=== PATIENT | female | born 1945 | race Caucasian/White ===

== ENCOUNTER → 2016-07-24 | Outpatient (CLI) | payer OTHER ==
[~2016-07-24] MED LIST: ALUMSUS2 PO; ASPEC81 PO; HYDR25TA5 PO; PRT/40 PO; TNR25 PO; ZYR10 PO
[2016-07-24 17:30] LABS: BLOOD UREA NITROGEN 17 mg/dl (7-18); CALCIUM 9.7 mg/dl (8.5-10.1); CARBON DIOXIDE 30 mmol/L (21-32); CHLORIDE 104 mmol/L (98-107); GLUCOSE 116 mg/dl (70-99); PHOSPHORUS 3.7 mg/dl (2.5-4.9); POTASSIUM 4.2 mmol/L (3.5-5.1); SODIUM 142 mmol/L (136-145)
== END | disposition home or self-care (01) ==
LOC: C.LABBFT 17:59
PROVIDERS: ATTEND Family Medicine
DX: N18.3 Chronic kidney disease, stage 3 (moderate) (principal)

== ENCOUNTER → 2017-09-19 | Outpatient (CLI) | payer OTHER ==
[~2017-09-19] MED LIST changes: -ASPEC81 PO; +ASPI-320 PO; +PANT40TA2 PO; -PRT/40 PO
--- NOTE | 2017-09-22 07:46 | MAMMOGRAPHY REPORT ---
BILATERAL DIGITAL SCREENING MAMMOGRAM TOMOSYNTHESIS WITH CAD: 09/19/2017 CLINICAL HISTORY: Routine screening. TECHNIQUE: Breast tomosynthesis in addition to standard 2D mammography was performed. Current study was also evaluated with a Computer Aided Detection (CAD) system. COMPARISON: Comparison is made to exams dated: 10/19/2014 mammogram, 01/21/2012 mammogram, 01/17/2011 [facility], and 12/08/2008. BREAST COMPOSITION: The tissue of both breasts is almost entirely fatty. FINDINGS: No suspicious masses, calcifications, or areas of architectural distortion are noted in ei ther breast. There has been no significant interval change compared to prior exams. IMPRESSION: ACR BI-RADS CATEGORY 1: NEGATIVE There is no mammographic evidence of malignancy. A 1 year screening mammogram is recommended. The pa tient will receive written notification of the results. Approximately 10% of breast cancers are not detected with mammography. A negative mammographic report should not delay biopsy if a clinically suggestive mass is present. Chica Estrada M.D. ah/:09/19/2017 15:35:49 Plumber'S Helper: Baltazar CHAVEZ(Cheryl)(M), [facility] letter sent: Normal 1/2 BI-RADS Code: ACR BI-RADS Category 1: Negative
== END | disposition home or self-care (01) ==
LOC: C.MAMM 13:14
PROVIDERS: ATTEND Family Medicine
DX: Z12.31 Encounter for screening mammogram for malignant neoplasm of breast (principal)

== ENCOUNTER 2019-06-24 08:38 | Inpatient (IN) ==
--- NOTE | 2019-06-01 13:59 | PAT Medication Instructions ---
Medication Instructions Date of Service June 01, 2019 Home Medications Medications No Known Home Medications 05/21/19 [History Confirmed 05/21/19] Take morning of surgery With a small sip of water, OTHERWISE NOTHING TO EAT OR DRINK AFTER MIDNIGHT: Insulin Dependent Diabetic Patients * Test your blood sugar the morning of surgery * If Blood Sugar is GREATER THAN 150, take HALF of your regular dose of: * If Blood Sugar is LESS THAN 150, DO NOT TAKE ANY: Other Notes If you have any questions please call us at [phone] or [phone] or [phone] or [phone]
--- NOTE | 2019-06-01 14:14 | Anesthesiology Consultation ---
Date of Service June 01, 2019 Assessment & Plan (1) Encounter for pre-operative examination: Chart Review Chart Review: Acceptable Risk for Surgery (pending surgeon-ordered PCP clearance scheduled 06/09 (Dr. Mc)) and Patient seen in Pre Admission Testing Teaching & Discussion Pre-Anesthesia Teaching/Discussion Notes: Instructed NPO after midnight before surgery,except medications with 15 cc of water. Medication instructions provide d according to the PAT guidelines. History Surgery Operation Date: 06/24/19 09:25 Proposed Procedures p Right Total Hip Arthroplasty - Cain Rg MD Height/Weight Height: 5 ft 6 in Weight: 80.9 kg Allergies Allergy/AdvReac Type Severity Reaction Status Date / Time Iodinated Contrast Media Allergy Unknown Hives Verified 05/21/19 09:06 Medications Home Medications Medication Instructions Recorded Confirmed Last Taken No Known Home Medications 05/21/19 05/21/19 Unknown Past Medical History Medical History Chronic sinus complaints Diverticulosis History of hypertension "borderline"- controlled off meds Hx of gastroesophageal reflux (GERD) occasional IBS (irritable bowel syndrome) Osteoarthritis Palpitations previously on atenolol Stage 3 chronic kidney disease Exercise / Class Metabolic Activity III < 4 Walking/Shop/Light housework Past Surgical History Surgical History Hx of cervical spine surgery laminectomy Hx of colonoscopy Hx of dilation and curettage Past Anesthesia History No Family Hx of Anesthesia Complications and Other Patient: "Slow to wake" History of PONV History of PONV and Hx of Motion Sickness (occasional) Social History Smoking Status: Never smoker Do You Dip or Chew Tobacco: No Hx Alcohol Use: No Hx Substance Use: No Review of Systems URI symptoms improving (+ non-productive cough). Occasional palpitations (unchanged). Occasional reflux. Patient denies chest pain, shortness of breath, reflux, cough, wheezing. Physical Exam Vital Signs VITALS BP 148/82 P 93 TEMP 98.4 SP02 96%RA RESP 18 PHYSICAL Mildly decreased cerivical extension Full TMJ range of motion. TMD 3 finger breaths Mallampati Score 2 Dentition: intact Lungs: clear throughout to auscultation Cardiac: regular rate and rhythm, no murmurs noted Spine: normal Carotid arteries: negative bruit Extremities: no edema Testing Laboratory Results 06/01/19 14:38 06/01/19 14:38 PT 9.8 Seconds (9.0-12.0) 06/01/19 14:38 INR 1.0 (0.9-1.1) 06/01/19 14:38 APTT 28.0 Seconds (21.0-31.0) 06/01/19 14:38 Hemoglobin A1c 6.2 % (4.5-5.6) H 06/01/19 14:38 Urine Color Yellow 06/01/19 14:38 Urine Appearance Clear (Clear) 06/01/19 14:38 Urine pH 5.5 (4.5-7.5) 06/01/19 14:38 Ur Specific [place] 1.006 (1.000-1.030) 06/01/19 14:38 Urine Protein Negative (Negative) 06/01/19 14:38 Urine Glucose (UA) Negative (Negative) 06/01/19 14:38 Urine Ketones Negative (Negative) 06/01/19 14:38 Urine Nitrite Negative (Negative) 06/01/19 14:38 Ur Leukocyte Esterase Negative (Negative) 06/01/19 14:38 Blood Type O Negative 06/01/19 14:38 Antibody Screen NEGATIVE 06/01/19 14:38 Electrocardiogram Date: 06/01/19 NSR at 74bpm. iRBBB. NS STA. Stress Test Date: 01/13/14 Type: exercise Normal exercise stress ECHO. No ECHO evidence of myocardial ischemia. Mild equivocal EKG changes. 5.3 METS. LVEF 55-60%. 106% MPHR.
[2019-06-01 15:56] LABS: Appearance Urine Clear (Clear); Bilirubin Urine Negative (Negative); Blood Urine Negative (Negative); Color Urine Yellow; Glucose Urine UA Negative (Negative); Ketones Urine Negative (Negative); Leukocyte Esterase Urine Negative (Negative); Nitrite Urine Negative (Negative); Protein Urine Negative (Negative); Specific Gravity Urine 1.006 (1.000-1.030); Urobilinogen Urine Negative (Negative); pH Urine 5.5 (4.5-7.5)
[2019-06-01 15:57] LABS: Basophils # (auto) 0.06 K/uL (0-0.2); Basophils % (auto) 0.6 %; Eosinophils # (auto) 0.11 K/uL (0-0.5); Eosinophils % (auto) 1.1 %; Hematocrit (blood only) 44.5 % (37-47); Hemoglobin 15.1 g/dL (12.0-16.0); Immature Granulocytes # (auto) 0.04 K/uL (0.00-0.02); Immature Granulocytes % (auto) 0.4 %; Lymphocytes # (auto) 2.27 K/uL (1.2-3.4); Lymphocytes % (auto) 23.1 %; Mean Corpuscular Hemoglobin 30.1 pg (25-34); Mean Corpuscular Hgb Conc 33.9 g/dL (32-36); Mean Corpuscular Volume 88.8 fL (80-100); Mean Platelet Volume 10.3 fL (7.4-10.4); Monocytes # (auto) 0.68 K/uL (0.11-0.59); Monocytes % (auto) 6.9 %; Neutrophils # (auto) 6.68 K/uL (1.4-6.5); Neutrophils % (auto) 67.9 %; Platelet Count 226 K/uL (130-400); RDW Coefficient of Variation 13.5 % (11.5-14.5); RDW Standard Deviation 44.1 fL (36.4-46.3); Red Blood Count 5.01 M/uL (4.2-5.4); White Blood Count 9.84 K/uL (4.8-10.8)
[2019-06-01 16:13] LABS: Prothrombin Time 9.8 Seconds (9.0-12.0)
--- NOTE | 2019-06-01 16:17 | Electrocardiogram Report ---
Test Reason : Blood Pressure : / mmHG Vent. Rate : 074 BPM Atrial Rate : 074 BPM P-R Int : 138 ms QRS Dur : 092 ms QT Int : 398 ms P-R-T Axes : 067 064 065 degrees QTc Int : 441 ms Normal sinus rhythm Incomplete right bundle branch block Nonspecific ST abnormality Abnormal ECG When compared with ECG of 13-JAN-2014 06:31, T wave inversion no longer evident in Anterior leads Confirmed by Varinder Aguayo ([id number]) on 06/01/2019 4:16:43 PM Referred By: Cain Rg Confirmed By:Varinder Aguayo
[2019-06-01 16:23] LABS: Albumin Level 3.9 gm/dl (3.4-5.0); BUN Creatinine Ratio 16.9 (10-20); Calcium 9.8 mg/dl (8.5-10.1); Creatinine Clr Calc Pharmacy 48.3 ml/min; Est GFR (African American) 56.2; Est GFR (Non-African American) 48.5; Potassium 4.4 mmol/L (3.5-5.1)
[2019-06-01 16:32] LABS: Bilirubin,Total 0.3 mg/dl (0.2-1); Globulin 3.8 gm/dl (2.5-4.0); Total Protein 7.7 gm/dl (6.4-8.2)
[2019-06-02 07:26] LABS: Estimated Average Glucose 131 mg/dl; Hemoglobin A1C 6.2 % (4.5-5.6)
--- NOTE | 2019-06-02 14:35 | History & Physical Report ---
Date of Service June 02, 2019 Assessment & Plan (1) Osteoarthritis of right hip: Diagnosis: [Right hip osteoarthritis] Procedure: [Right total hip arthroplasty] Plan: [Patient is scheduled to undergo this procedure with Dr. Cain Rg at the [facility] as an inpatient on June 24, 2019 risks and complications of the procedure such as infection bleeding pain scarring nerve blood vessel damage with wound problems stiffness incomplete relief of symptoms hardware failure hardware loosening wear fracture tendon or ligament injury dislocation leg length inequality blood clots embolism heart attack stroke and were explained to the patient during her visit today by Dr. Rg informed consent to perform the procedure was obtained. Patient had her preanesthesia clearance test at the hospital earlier today and at that time obtains a preoperative EKG CBC with differential complete metabolic panel PT/INR blood type and screen urinalysis urine culture hemoglobin A1c and a nasal culture for MRSA. Patient is scheduled appointment with her primary care provider Dr. Mc next Friday for her preoperative clearance examination. Her two-week postoperative follow-up with myself is on July 07 at 1045. During today's visit I educated patient about total hip precautions, use of antibiotics after total joint replacement, discharge planning, purchase of a hip care, lectures offered by the [facility] in regards to joint replacement surgery. I also advised her about purchasing a hip kit, bringing a walker with her on the day of surgery, and provided her with paperwork to obtain a handicap placard for her vehicle. Advised the patient that I will discharge her with prescriptions for pain relieving agents and that she will be taking enteric- coated aspirin twice daily for 30 days postoperatively for prevention of blood clots. Patient verbalizes understanding of all information during today's visit thanks for the care she is received and states that she has questions or concerns prior to her surgery date she will contact the clinic.] History of Present Illness Chief Complaint: Right hip pain Primary Care Provider: Castro Mc MD History of Present Illness: [74-year-old female presents to the clinic today for preoperative history and physical patient complains of a 3 to 4-year history of persistent right hip pain that is steadily increased. Pain prevents her from walking long distances, makes ascending or descending stairs difficult, and has made it difficult for her to care for her grandchildren. Patient is failed conservative treatment with physical therapy the use of nonsteroidal agents and with steroid injections into the hip.] Past History: [Past medical history: sleep apnea, heart palpitations, migraine headache, gastroesophageal reflux, hiatal hernia, obesity Past surgical history: Stage III chronic kidney disease, cervical laminectomy, D&C] Family History: [Noncontributory] Review of Systems: [Unremarkable except for those things previously stated in the HPI] Known Allergies to Medications: [IVP dye] Medication List Active Medications No Active Medications Found Medications Inactivated in the Last 72 Hours No medications found. Social History: [Completely unremarkable] Vital signs: Height 168 cm Weight 82.2 kg Blood pressure 128/76 Pulse 103 Temperature 36.8 Oxygen saturation 90% Physical Examination: [Skin: Patient skin along peers without skin lesions or discharge. Eyes: pupils are equal reactive light accommodation extraocular motor intact. Throat:Posterior pharynx clear without edema erythema or exudate Cardiovascular exam: Patient has a regular rate and rhythm no murmurs gallops initiated Lungs: Auscultation of lung sounds reveals clear breath sounds throughout no wheezing rales or rhonchi. Abdomen: Obese nondistended nontender with normoactive bowel sounds Extremities: Right hip; walks with limp Positive Trendelenberg's test Tenderness along GT and anterior joint line Tight IT band Positive Xiomara's test ROM - Flexion 120; ER 50; IR 0: Abd 20 (other side 120/50/30/50) Pain on end range [facility] resisted hip flexion test - positive ] Diagnosis: [Right hip osteoarthritis] Procedure: [Right total hip arthroplasty] Plan: [Patient is scheduled to undergo this procedure with Dr. Cain Rg at the [facility] as an inpatient on June 24, 2019 risks and complications of the procedure such as infection bleeding pain scarring nerve blood vessel damage with wound problems stiffness incomplete relief of symptoms hardware failure hardware loosening wear fracture tendon or ligament injury dislocation leg length inequality blood clots embolism heart attack stro ke and were explained to the patient during her visit today by Dr. Rg informed consent to perform the procedure was obtained. Patient had her preanesthesia clearance test at the hospital earlier today and at that time obtains a preoperative EKG CBC with differential complete metabolic panel PT/INR blood type and screen urinalysis urine culture hemoglobin A1c and a nasal culture for MRSA. Patient is scheduled appointment with her primary care provider Dr. Mc next Friday for her preoperative clearance examination. Her two-week postoperative follow-up with myself is on July 07 at 1045. During today's visit I educated patient about total hip precautions, use of antibiotics after total joint replacement, discharge planning, purchase of a hip care, [facility] replacement surgery. I also advised her about purchasing a hip kit, bringing a walker with her on the day of surgery, and provided her with paperwork to obtain a handicap placard for her vehicle. Advised the patient that I will discharge her with prescriptions for pain relieving agents and that she will be taking enteric- coated aspirin twice daily for 30 days postoperatively for prevention of blood clots. Patient verbalizes understanding of all information during today's visit thanks for the care she is received and states that she has questions or co ncerns prior to her surgery date she will contact the clinic.] Allergies Allergy/AdvReac Type Severity Reaction Status Date / Time Iodinated Contrast Media Allergy Unknown Hives Verified 05/21/19 09:06 Home Medications Home Medications Medication Instructions Recorded Confirmed Type No Known Home Medications 05/21/19 05/21/19 History Past Med/Surg History Medical History Chronic sinus complaints Diverticulosis History of hypertension "borderline"- controlled off meds Hx of gastroesophageal reflux (GERD) occasional IBS (irritable bowel syndrome) Osteoarthritis Palpitations previously on atenolol Stage 3 chronic kidney disease Surgical History Hx of cervical spine surgery laminectomy Hx of colonoscopy Hx of dilation and curettage Social History Preferred Language: Irish Communication Ability: Effective Beliefs That Will Affect Care: None Current Living Situation: Alone Other Information That Helps Us Care for You: Yes (WANTS TO GO TO REHAB POST OP) Feels Safe at Home: Yes Safety Concerns: Feels Safe At This Time Smoking Status: Never smoker Do You Dip or Chew Tobacco: No ; Second Hand Exposure: Yes (YEARS AGO) ; Hx Alcohol Use: No Hx Substance Use: No Review of Systems All systems reviewed & are unremarkable except as noted in HPI & below Physical Exam Physical Exam: Physical Examination: [Skin: Patient skin along peers without skin lesions or discharge. Eyes: pupils are equal reactive light accommodation extraocular motor intact. Throat:Posterior pharynx clear without edema erythema or exudate Cardiovascular exam: Patient has a regular rate and rhythm no murmurs gallops initiated Lungs: Auscultation of lung sounds reveals clear breath sounds throughout no wheezing rales or rhonchi. Abdomen: Obese nondistended nontender with normoactive bowel sounds Extremities: Right hip; walks with limp Positive Trendelenberg's test Tenderness along GT and anterior joint line Tight IT band Positive Xiomara's test ROM - Flexion 120; ER 50; IR 0: Abd 20 (other side 120/50/30/50) Pain on end range [place] resisted hip flexion test - positive Results & Data Laboratory Results Lab Results 06/01/19 06/01/19 06/01/19 Range/Units 14:38 14:38 14:38 WBC 9.84 (4.8-10.8) K/uL RBC 5.01 (4.2-5.4) M/uL Hgb 15.1 (12.0-16.0) g/dL Hct 44.5 (37-47) % MCV 88.8 (80-100) fL MCH 30.1 (25-34) pg MCHC 33.9 (32-36) g/dL RDW Std Deviation 44.1 (36.4-46.3) fL RDW Coeff of Aureliano 13.5 (11.5-14.5) % Plt Count 226 (130-400) K/uL MPV 10.3 (7.4-10.4) fL Immature Gran % (Auto) 0.4 % Neut % (Auto) 67.9 % Lymph % (Auto) 23.1 % Mower % (Auto) 6.9 % Eos % (Auto) 1.1 % Baso % (Auto) 0.6 % Immature Gran # (Auto) 0.04 H (0.00-0.02) K/uL Neut # (Auto) 6.68 H (1.4-6.5) K/uL Lymph # (Auto) 2.27 (1.2-3.4) K/uL Mower # (Auto) 0.68 H (0.11-0.59) K/uL Eos # (Auto) 0.11 (0-0.5) K/uL Baso # (Auto) 0.06 (0-0.2) K/uL PT 9.8 (9.0-12.0) Seconds INR 1.0 (0.9-1.1) APTT 28.0 (21.0-31.0) Seconds PTT Ratio 1.0 Sodium (136-145) mmol/L Potassium (3.5-5.1) mmol/L Chloride (98-107) mmol/L Carbon Dioxide (21-32) mmol/L Anion Gap (3-11) BUN (7-18) mg/dl Creatinine (0.6-1.2) mg/dl Est Cr Clr Drug Dosing ml/min Est GFR ( Amer) Est GFR (Non-Af Amer) BUN/Creatinine Ratio (10-20) Glucose (70-99) mg/dl Estimat Average Glucose mg/dl Hemoglobin A1c (4.5-5.6) % Calcium (8.5-10.1) mg/dl Total Bilirubin (0.2-1) mg/dl AST (15-37) U/L ALT (12-78) U/L Alkaline Phosphatase (45-117) U/L Total Protein (6.4-8.2) gm/dl Albumin (3.4-5.0) gm/dl Globulin (2.5-4.0) gm/dl Albumin/Globulin Ratio (0.9-2) Urine Color Urine Appearance (Clear) Urine pH (4.5-7.5) Ur Specific [place] (1.000-1.030) Urine Protein (Negative) Urine Glucose (UA) (Negative) Urine Ketones (Negative) Urine Blood (Negative) Urine Nitrite (Negative) Urine Bilirubin (Negative) Urine Urobilinogen (Negative) Ur Leukocyte Esterase (Negative) Nasal Screen MRSA (PCR) (Negative) Blood Type O Negative Antibody Screen NEGATIVE 06/01/19 06/01/19 06/01/19 Range/Units 14:38 14:38 14:38 WBC (4.8-10.8) K/uL RBC (4.2-5.4) M/uL Hgb (12.0-16.0) g/dL Hct (37-47) % MCV (80-100) fL MCH (25-34) pg MCHC (32-36) g/dL RDW Std Deviation (36.4-46.3) fL RDW Coeff of Aureliano (11.5-14.5) % Plt Count (130-400) K/uL MPV (7.4-10.4) fL Immature Gran % (Auto) % Neut % (Auto) % Lymph % (Auto) % Mower % (Auto) % Eos % (Auto) % Baso % (Auto) % Immature Gran # (Auto) (0.00-0.02) K/uL Neut # (Auto) (1.4-6.5) K/uL Lymph # (Auto) (1.2-3.4) K/uL Mower # (Auto) (0.11-0.59) K/uL Eos # (Auto) (0-0.5) K/uL Baso # (Auto) (0-0.2) K/uL PT (9.0-12.0) Seconds INR (0.9-1.1) APTT (21.0-31.0) Seconds PTT Ratio Sodium 138 (136-145) mmol/L Potassium 4.4 (3.5-5.1) mmol/L Chloride 103 (98-107) mmol/L Carbon Dioxide 29 (21-32) mmol/L Anion Gap 5.0 (3-11) BUN 19 H (7-18) mg/dl Creatinine 1.13 (0.6-1.2) mg/dl Est Cr Clr Drug Dosing 48.3 ml/min Est GFR ( Amer) 56.2 Est GFR (Non-Af Amer) 48.5 BUN/Creatinine Ratio 16.9 (10-20) Glucose 139 H (70-99) mg/dl Estimat Average Glucose 131 mg/dl Hemoglobin A1c 6.2 H (4.5-5.6) % Calcium 9.8 (8.5-10.1) mg/dl Total Bilirubin 0.3 (0.2-1) mg/dl AST 20 (15-37) U/L ALT 28 (12-78) U/L Alkaline Phosphatase 85 (45-117) U/L Total Protein 7.7 (6.4-8.2) gm/dl Albumin 3.9 (3.4-5.0) gm/dl Globulin 3.8 (2.5-4.0) gm/dl Albumin/Globulin Ratio 1.0 (0.9-2) Urine Color Yellow Urine Appearance Clear (Clear) Urine pH 5.5 (4.5-7.5) Ur Specific [place] 1.006 (1.000-1.030) Urine Protein Negative (Negative) Urine Glucose (UA) Negative (Negative) Urine Ketones Negative (Negative) Urine Blood Negative (Negative) Urine Nitrite Negative (Negative) Urine Bilirubin Negative (Negative) Urine Urobilinogen Negative (Negative) Ur Leukocyte Esterase Negative (Negative) Nasal Screen MRSA (PCR) (Negative) Blood Type Antibody Screen 06/01/19 Range/Units 14:38 WBC (4.8-10.8) K/uL RBC (4.2-5.4) M/uL Hgb (12.0-16.0) g/dL Hct (37-47) % MCV (80-100) fL MCH (25-34) pg MCHC (32-36) g/dL RDW Std Deviation (36.4-46.3) fL RDW Coeff of Aureliano (11.5-14.5) % Plt Count (130-400) K/uL MPV (7.4-10.4) fL Immature Gran % (Auto) % Neut % (Auto) % Lymph % (Auto) % Mower % (Auto) % Eos % (Auto) % Baso % (Auto) % Immature Gran # (Auto) (0.00-0.02) K/uL Neut # (Auto) (1.4-6.5) K/uL Lymph # (Auto) (1.2-3.4) K/uL Mower # (Auto) (0.11-0.59) K/uL Eos # (Auto) (0-0.5) K/uL Baso # (Auto) (0-0.2) K/uL PT (9.0-12.0) Seconds INR (0.9-1.1) APTT (21.0-31.0) Seconds PTT Ratio Sodium (136-145) mmol/L Potassium (3.5-5.1) mmol/L Chloride (98-107) mmol/L Carbon Dioxide (21-32) mmol/L Anion Gap (3-11) BUN (7-18) mg/dl Creatinine (0.6-1.2) mg/dl Est Cr Clr Drug Dosing ml/min Est GFR ( Amer) Est GFR (Non-Af Amer) BUN/Creatinine Ratio (10-20) Glucose (70-99) mg/dl Estimat Average Glucose mg/dl Hemoglobin A1c (4.5-5.6) % Calcium (8.5-10.1) mg/dl Total Bilirubin (0.2-1) mg/dl AST (15-37) U/L ALT (12-78) U/L Alkaline Phosphatase (45-117) U/L Total Protein (6.4-8.2) gm/dl Albumin (3.4-5.0) gm/dl Globulin (2.5-4.0) gm/dl Albumin/Globulin Ratio (0.9-2) Urine Color Urine Appearance (Clear) Urine pH (4.5-7.5) Ur Specific [place] (1.000-1.030) Urine Protein (Negative) Urine Glucose (UA) (Negative) Urine Ketones (Negative) Urine Blood (Negative) Urine Nitrite (Negative) Urine Bilirubin (Negative) Urine Urobilinogen (Negative) Ur Leukocyte Esterase (Negative) Nasal Screen MRSA (PCR) Negative (Negative) Blood Type Antibody Screen
[~2019-06-24 08:38] MED LIST changes: +ACETAMINOPHEN 500 MG TAB PO SCH; -ALUMSUS2 PO; -ASPI-320 PO; +BUPIVACAINE 0.5 % 5 MG/1 ML PF 10ML VIAL ONE; +CEFAZOLIN 2000MG 2,000 MG/15 ML SYR IV SCH; +FAMOTIDINE 20 MG TAB PO SCH; -HYDR25TA5 PO; +LR 500ML BOLUS, THEN 15ML/HR IV SCH; +LR 60ML/HR IV SCH; +METOCLOPRAMIDE HCL 10 MG TABLET PO SCH; -PANT40TA2 PO; +ROPIVACAINE 0.5% HCL/PF 150 MG, BUPIVACAINE 0.5% MPF 30 ML, EPINEPHrine 0.15 MG, Ketoro... INFIL SCH; +SCOPOLAMINE 1.5 MG TDSY TD SCH; -TNR25 PO; +TRAMADOL HCL 50 MG TABLET PO SCH; +TRANEXAMIC ACID 1,000 MG **IV Intra-op IV SCH; +TRANEXAMIC ACID 1,000 MG **IV Pre-op IV SCH; -ZYR10 PO; +dexAMETHasone 4 MG TAB PO SCH
[2019-06-24] MEDS ORDERED: ePHEDrine sulfate 50 MG/ML SYR ONE (10:00)
[2019-06-24] MEDS ORDERED: LIDOCAINE HCL 2% 2 ML VIAL/AMP(20MG/ML) INFIL ONE (10:00)
[2019-06-24] MEDS ORDERED: MIDAZOLAM HCL 1 MG/ML 2ML VIAL ONE ×2 (10:00)
[2019-06-24] MEDS ORDERED: PROPOFOL IV EMULSION 10 MG/ML 20 ML VIAL IV ONE (10:00)
[2019-06-24] MEDS ORDERED: fentaNYL citrate 100 MCG/2 ML VIAL ONE (10:00)
--- NOTE | 2019-06-24 11:01 | History & Physical Bridge Note ---
Date of Service June 24, 2019 History & Physical Bridge Note I have examined the patient, reviewed the History & Physical and in the interval since the performance of the History & Physical I have noted the following changes of clinical significance: no changes noted
[2019-06-24] MEDS ORDERED: ORTHO JOINT ANESTHETIC ONE (11:06)
--- NOTE | 2019-06-24 12:52 | Post Operative Brief Note ---
Immediate Post Op Note v1 Date of Surgery June 24, 2019 Pre & Post Diagnosis Operation Date: 06/24/19 11:15 Pre-Op Diagnosis: Right Hip Osteoarthritis Post-Op Diagnosis: Right Hip Osteoarthritis I identified the patient and participated in the time-out.: Yes Procedure Operation Date: 06/24/19 11:15 Actual Procedures p Right Total Hip Arthroplasty--Uncemented(Right) - Cain Rg MD Surgeon Cain Rg MD [employer] Mitigation Officer HUBER Manrique PA-C Estimated Blood Loss 100 Findings Consistent with Post-Op Diagnosis Fluids 2000 cc Specimens Femoral head Anesthesia Type Spinal MAC Complications none Disposition Accompanied Patient To Recovery: No Disposition: Recovery Room
[2019-06-24] MEDS ORDERED: NALOXONE HCL 0.4 MG/1 ML VIAL/CARP IV PRN (13:06)
[2019-06-24] MEDS ORDERED: MAGNESIUM HYDROXIDE SUSP 30 ML UDC PO PRN (13:06)
[2019-06-24] MEDS ORDERED: TRAMADOL HCL 50 MG TABLET PO PRN (13:06)
[2019-06-24] MEDS ORDERED: bisacodyL 10 MG SUPP PR PRN (13:06)
[2019-06-24] MEDS ORDERED: OXYCODONE HCL IR 5 MG TAB (IMMEDIATE RELEASE) PO PRN (13:06)
[2019-06-24] MEDS ORDERED: ALUMINUM/MAGNESIUM SUSP 30 ML UDC PO PRN (13:06)
[2019-06-24] MEDS ORDERED: DiphenhydrAMINE HCL 50 MG/ML VIAL IV PRN (13:06)
[2019-06-24] MEDS ORDERED: ONDANSETRON INJ 2 MG/ML 2 ML VIAL IV PRN ×2 (13:06→13:51)
[2019-06-24] MEDS ORDERED: HYDROmorphone INJ 0.5 MG/0.5 ML SYR IV PRN (13:06)
[2019-06-24] MEDS ORDERED: METOCLOPRAMIDE HCL INJ 5 MG/ML 2 ML VIAL IV PRN (13:06)
--- NOTE | 2019-06-24 13:06 | Operative Report ---
Post Operative Report Pre & Post Diagnosis Operation Date: 06/24/19 11:15 Pre-Op Diagnosis: Right Hip Osteoarthritis Post-Op Diagnosis: Right Hip Osteoarthritis I identified the patient and participated in the time-out.: Yes Procedure Operation Date: 06/24/19 11:15 Actual Procedures p Right Total Hip Arthroplasty--Uncemented(Right) - Cain Rg MD Surgeon Cain Rg MD Dock Attendant HUBER Manrique PA-C Estimated Blood Loss 100 Findings Consistent with Post-Op Diagnosis Specimens Right femoral head Complications none Disposition Accompanied Patient To Recovery: Yes Disposition: Recovery Room Description of Procedure I was present during the entire procedure assisting with retraction, wound closure and dressing application. Please see Dr. Rg procedure note for specifics of the case. I attest to the content of the Intraoperative Record and any orders documented therein. Any exceptions are noted below.
[2019-06-24] MEDS ORDERED: SODIUM CHLORIDE 0.9% 1000ML 1,000 ML IV SCH (13:15)
--- NOTE | 2019-06-24 13:34 | Operative Report ---
DATE OF OPERATION: 06/24/2019 PREOPERATIVE DIAGNOSIS: Right hip osteoarthritis. POSTOPERATIVE DIAGNOSIS: Right hip osteoarthritis. OPERATIONS PERFORMED: Right total hip arthroplasty. SURGEON: Cain Rg MD. RETRIEVAL SPECIALIST: Triston Manrique PA-C. ESTIMATED BLOOD LOSS: 100 mL. INTRAVENOUS FLUIDS: 2000 mL of crystalloid. SPECIMENS: Femoral head. COMPLICATIONS: None. IMPLANTS: 1. DePuy Auburn Gription 50 mm outer diameter acetabular sector cup. 2. Auburn cancellous bone screw 6.5 mm x 40 mm. 3. Auburn Ultrex polyethylene liner neutral for a 32 mm femoral head. 4. DePuy Gardner femoral stem size 4 standard offset. 5. DePuy Biolox delta ceramic femoral head 32 mm diameter with a +9 offset. INDICATIONS: Ms. Fontana is a 74-year-old female who has had pain in her right hip for 4 years. It has progressively worsened. It is now affecting her activities of daily living. She has failed conservative management. X-rays demonstrate end-stage osteoarthritis. I had a long discussion with her about the risks and benefits of surgery, alternatives to surgery and expected outcomes. After reviewing all these, she elected to proceed with surgery. All questions were answered. Informed consent was signed. DESCRIPTION OF THE OPERATION: The patient was identified in the preoperative holding area where her surgical site was marked. She was given a spinal anesthetic, then brought back to main operating room where she was placed on the operating room table in the lateral decubitus position. Axillary roll was placed. All bony prominences were padded. Perioperative antibiotics and tranexamic acid were administered. She was then prepped and draped in normal sterile fashion. Prior to incision, a multidisciplinary timeout was called. All in the room were in agreement. We began by making a 14 cm long incision for posterior approach to the hip. We dissected through the subcutaneous tissues to the level of the fascia. The fascia was incised in line with the incision. A Charnley bow was placed. The trochanteric bursa was excised. Piriformis and short external rotators were dissected off the posterior aspect of the hip. A box cut was made in the capsule. The femoral head was dislocated. A femoral neck cut was made at 11 mm, which was our preoperative template. We then exposed the acetabulum. The labrum was sharply excised. Contents of the cotyloid fossa were removed with electrocautery. We then began reaming with a size 42 mm reamer. This was used to remove her medial osteophyte. We then sequentially reamed her up to a size 50 cup. This gave us good healthy bleeding cancellous bone circumferentially. We then irrigated out the acetabulum. There was a small cyst superiorly, which was curetted out and bone grafted. We used the last reamer to do bone grafting. We then opened up the DePuy Auburn 50 mm cup and impacted it down into position with 45 degrees of lateral opening and 25 degrees of anteversion. We then placed a single cancellous bone screw up into the ilium. Excellent fixation was obtained. The polyethylene liner for a 32 mm femoral head was then opened up and impacted down into position. We checked the locking mechanism to ensure it had engaged, which it had. Next, the femur was exposed. The lateral neck was removed with the box osteotome. Intramedullary guide was used followed by the lateralizing reamer. We then reamed her up to a size 4 Gardner stem. The femoral canal was then broached up to a size 4 Gardner femoral stem. We then placed the standard offset neck with a +5 head. Her center of trochanter to lesser trochanter distance was 48 mm. The distance before we made the osteotomy was 50 mm. We then reduced the hip. Her leg length was just a little bit short. Therefore, we dislocated the hip and upsized her to +8.5 femoral head. The center of head to lesser trochanter distance was then 50 mm. We reduced the hip and now her leg lengths were symmetric. Stability testing revealed no impingement with external rotation and extension. She was stable in the sleeper position. At 90 degrees of hip flexion, she could be internally rotated 60 degrees before leaving out of the cup. I was very happy with the stability exam. Therefore, the trial components were removed from the femur. The femoral canal was irrigated and dried. The real size 4 standard offset femur was opened up and was impacted down into position. It sat at the same level as the broach. Therefore, the 32 mm +9 offset ceramic femoral head was opened up and was gently impacted onto the trunnion. The hip was atraumatically reduced. The wound was irrigated with dilute Betadine solution. We then began to close. The periarticular injection cocktail was placed in the pericapsular tissues and in subcutaneous tissues around the incision. We then repaired the piriformis and capsule through bone tunnels in the posterior aspect of the greater trochanter with #2 Vicryl suture. The fascia was run with a looped #1 PDS. The deep subcutaneous layer was closed with a running #1 PDS. The deep dermal layer was closed with 2-0 Vicryl in running fashion. The skin was closed with a ZipLine. A Silverlon dressing was placed. A compressive dressing was placed over the top of this. She was then rolled supine and placed into an abduction pillow after we confirmed the proper leg lengths, which was confirmed. She was then transferred to the hospital bed and then to the recovery room in stable condition. POSTOPERATIVE COURSE: The patient will be admitted to the hospital from the recovery room. She will be weightbearing as tolerated with posterior hip precautions. She will be on aspirin for DVT prophylaxis. She will work with physical therapy tomorrow and we will discharge home after physical therapy, assuming she has an uneventful night medically overnight and passes her therapy. I attest to the content of the Intraoperative Record and any orders documented therein. Any exception s are noted below.
--- NOTE | 2019-06-24 13:35 | XRay Report ---
XR hip 1V RT w pelvis HISTORY: 74 years-old Female IN PACU - A/P PELVIS and LATERAL HIP right hip total joint arthroplast y COMPARISON: Pelvis radiograph 06/01/2019 TECHNIQUE: AP view of the pelvis with crosstable lateral view of the right hip FINDINGS: Right hip total joint arthroplasty demonstrates satisfactory alignment. No acute fracture or retained foreign body. Expected postsurgical soft tissue swelling and deep tissue air about the right hip. Mi ld left hip osteoarthritis. Demineralized appearance of the bones. IMPRESSION: Right hip total joint arthroplasty with expected postoperative findings. ACT 112: Negative or not required by law. The above report was generated using voice recognition software. It may contain grammatical, syntax o r spelling errors. Electronically signed by: Xavier Garcia M.D. 06/24/2019 1:33 PM
--- NOTE | 2019-06-24 13:40 | Anesthesiology Progress Note ---
Date of Service June 24, 2019 Anesthesia Post Procedure Vital Signs Vital Signs: Temp Pulse Pulse Resp BP Pulse Ox 06/24/19 13:30 36.2 C L 66 15 126/55 L 98 06/24/19 13:20 55 L 16 117/53 L 99 06/24/19 13:10 55 L 14 120/57 L 100 06/24/19 13:04 36.2 C L 67 16 119/61 100 06/24/19 09:31 36.7 C 60 20 148/84 H 98 Pain Intensity Right Hip: Pain Intensity: 3 Transfer of Care Handoff Completed per policy Notes Mental Status: alert / awake / arousable and participated in evaluation Patient Amnestic to Procedure: Yes Nausea / Vomiting: adequately controlled Pain: adequately controlled Airway Patency, RR, SpO2: stable & adequate BP & HR: stable & adequate Hydration State: stable & adequate Neuraxial Anesthesia: was administered and sensory block is resolving Anesthetic Complications: no major complications apparent and Pt Satisfied with anesthetic care
[2019-06-24] MEDS ORDERED: fentaNYL citrate 100 MCG/2 ML VIAL IV PRN (13:51)
[2019-06-24] MEDS ORDERED: ePHEDrine sulfate 50 MG/ML AMP IV PRN (13:51)
[2019-06-24] MEDS ORDERED: ATROPINE SULFATE 0.1 MG/ML 10ML SYR IV PRN (13:51)
[2019-06-24] MEDS: KETOROLAC TROMETHAMINE 15 MG/ML VIAL IV SCH ×2 (16:24→20:57)
[2019-06-24] MEDS: CHECK SCOPOLAMINE PATCH PLACEMENT SCH (16:30)
[2019-06-24] MEDS ORDERED: TRANEXAMIC ACID / 0.7% NACL 1,000 MG/100 ML BAG IV SCH (19:08)
[2019-06-24] MEDS: CEFAZOLIN 2000MG 2,000 MG/15 ML SYR IV SCH (19:14)
[2019-06-24] MEDS: ACETAMINOPHEN 500 MG TAB PO SCH (19:14)
[2019-06-24] MEDS: ASPIRIN 81 MG ECTAB PO SCH (20:57)
[2019-06-24] MEDS: DOCUSATE SODIUM 100 MG CAP PO SCH (20:57)
[2019-06-24] MEDS ORDERED: SENNA 8.6 MG TAB PO SCH (21:00)
[2019-06-25] MEDS: CHECK SCOPOLAMINE PATCH PLACEMENT SCH (00:13)
[2019-06-25] MEDS: CEFAZOLIN 2000MG 2,000 MG/15 ML SYR IV SCH (02:44)
[2019-06-25] MEDS: KETOROLAC TROMETHAMINE 15 MG/ML VIAL IV SCH ×2 (02:44→08:32)
[2019-06-25] MEDS: ACETAMINOPHEN 500 MG TAB PO SCH ×2 (05:01→14:17)
[2019-06-25 05:32] LABS: Basophils # (auto) 0.01 K/uL (0-0.2); Basophils % (auto) 0.1 %; Hematocrit (blood only) 38.5 % (37-47); Hemoglobin 12.9 g/dL (12.0-16.0); Immature Granulocytes # (auto) 0.08 K/uL (0.00-0.02); Immature Granulocytes % (auto) 0.5 %; Lymphocytes % (auto) 8.6 %; Mean Corpuscular Hemoglobin 29.3 pg (25-34); Mean Corpuscular Hgb Conc 33.5 g/dL (32-36); Mean Corpuscular Volume 87.3 fL (80-100); Mean Platelet Volume 10.2 fL (7.4-10.4); Monocytes # (auto) 1.09 K/uL (0.11-0.59); Monocytes % (auto) 6.7 %; Neutrophils # (auto) 13.71 K/uL (1.4-6.5); Neutrophils % (auto) 84.1 %; Platelet Count 231 K/uL (130-400); RDW Coefficient of Variation 13.3 % (11.5-14.5); RDW Standard Deviation 42.8 fL (36.4-46.3); Red Blood Count 4.41 M/uL (4.2-5.4); White Blood Count 16.29 K/uL (4.8-10.8)
[2019-06-25 06:06] LABS: BUN Creatinine Ratio 16.5 (10-20); Calcium 8.8 mg/dl (8.5-10.1); Creatinine Clr Calc Pharmacy 46.5 ml/min; Est GFR (African American) 53.4
--- NOTE | 2019-06-25 07:25 | Anesthesiology Progress Note ---
Date of Service June 25, 2019 Anesthesia Post Procedure Vital Signs Vital Signs: Temp Pulse Pulse Resp BP Pulse Ox 06/25/19 03:05 36.8 C 59 L 16 112/71 95 06/24/19 23:15 36.9 C 72 16 106/61 95 06/24/19 20:00 36.7 C 70 16 114/67 94 06/24/19 17:00 36.4 C L 65 16 124/71 97 06/24/19 16:00 36.4 C L 60 16 117/67 97 06/24/19 15:00 36.4 C L 59 L 16 127/69 100 06/24/19 14:30 64 16 137/69 100 06/24/19 14:00 36.4 C L 57 L 14 121/69 96 06/24/19 13:45 76 18 128/57 L 94 06/24/19 13:30 36.2 C L 66 15 126/55 L 98 06/24/19 13:20 55 L 16 117/53 L 99 06/24/19 13:10 55 L 14 120/57 L 100 06/24/19 13:04 36.2 C L 67 16 119/61 100 06/24/19 09:31 36.7 C 60 20 148/84 H 98 Pain Intensity Right Hip: Pain Intensity: 3 Notes Mental Status: alert / awake / arousable and participated in evaluation Patient Amnestic to Procedure: Yes Nausea / Vomiting: adequately controlled Pain: adequately controlled Airway Patency, RR, SpO2: stable & adequate BP & HR: stable & adequate Hydration State: stable & adequate Neuraxial Anesthesia: sensory block resolved Anesthetic Complications: Pt Satisfied with anesthetic care
[2019-06-25] MEDS ORDERED: dexAMETHasone 4 MG TAB PO SCH (08:00)
[2019-06-25] MEDS: ASPIRIN 81 MG ECTAB PO SCH (08:32)
[2019-06-25] MEDS: DOCUSATE SODIUM 100 MG CAP PO SCH (08:32)
[2019-06-25] MEDS ORDERED: MULTIVITAMIN TAB PO SCH (09:00)
--- NOTE | 2019-06-25 12:25 | Orthopedic Progress Note ---
Date of Service June 25, 2019 Assessment & Plan (1) S/P total hip arthroplasty: WBAT with walker assistance Ice with EZ wrap Total Hip precautions Abduction pillow use x 6 wks PT/OT this AM Discharge to home this evening with in home therapy services DVT prophylaxis with TEDs and Aspirin Pain control with PO meds F/u at [facility] as previously scheduled With questions call Subjective This 74 yo F is day 1 s/p Right total hip arthroplasty. She is doing very well with no complaints. She denies hip pain, fever, chills, sweats, lethargy, nausea, vomiting, numbness or tingling, CP or SOB. She states that PT/OT went smoothly this AM and she had no difficulty. She was planning on going to [facility] for rehab but states that her insurance most likely won't pay for it, so she will most likely go home this evening with inhome therapy. Review of Systems Review of Systems: All systems reviewed & are unremarkable except as noted in HPI & below Physical Exam Physical Exam: Right Hip: Dressing clean, dry and intact. Knee ROM 0-90. Calf soft and supple. NV intact in Rt LE. Periph pulses easily palpable. Cap refill < 2 seconds. No pain with light passive internal / external hip rotation. Neg SLRT. Neg log roll. Neg stinchfield. Quad strength 4/5. Able to easily actively dorsi/plantarflex foot. Results & Data ([facility]) Vital Signs (Past 12 Hours) Vital Signs Temp Pulse Resp BP BP Pulse Ox 06/25/19 11:43 36.6 C 58 L 16 128/76 96 06/25/19 08:02 36.6 C 54 L 15 122/64 100 06/25/19 03:05 36.8 C 59 L 16 112/71 95 Laboratory Results 06/25/19 06/25/19 06/25/19 Range/Units 06:25 05:15 05:15 WBC 16.29 H (4.8-10.8) K/uL RBC 4.41 (4.2-5.4) M/uL Hgb 12.9 (12.0-16.0) g/dL Hct 38.5 (37-47) % MCV 87.3 (80-100) fL MCH 29.3 (25-34) pg MCHC 33.5 (32-36) g/dL RDW Std Deviation 42.8 (36.4-46.3) fL RDW Coeff of Aureliano 13.3 (11.5-14.5) % Plt Count 231 (130-400) K/uL MPV 10.2 (7.4-10.4) fL Immature Gran % (Auto) 0.5 % Neut % (Auto) 84.1 % Lymph % (Auto) 8.6 % Terrell % (Auto) 6.7 % Eos % (Auto) 0.0 % Baso % (Auto) 0.1 % Immature Gran # (Auto) 0.08 H (0.00-0.02) K/uL Neut # (Auto) 13.71 H (1.4-6.5) K/uL Lymph # (Auto) 1.40 (1.2-3.4) K/uL Terrell # (Auto) 1.09 H (0.11-0.59) K/uL Eos # (Auto) 0.00 (0-0.5) K/uL Baso # (Auto) 0.01 (0-0.2) K/uL Sodium 141 (136-145) mmol/L Potassium 4.0 (3.5-5.1) mmol/L Chloride 109 H (98-107) mmol/L Carbon Dioxide 26 (21-32) mmol/L Anion Gap 6.0 (3-11) BUN 19 H (7-18) mg/dl Creatinine 1.18 (0.6-1.2) mg/dl Est Cr Clr Drug Dosing 46.5 ml/min Est GFR ( Amer) 53.4 Est GFR (Non-Af Amer) 46.0 BUN/Creatinine Ratio 16.5 (10-20) Glucose 146 H (70-99) mg/dl Calcium 8.8 (8.5-10.1) mg/dl Hepatitis C Ab Screen (Neg) 06/25/19 Range/Units 05:15 WBC (4.8-10.8) K/uL RBC (4.2-5.4) M/uL Hgb (12.0-16.0) g/dL Hct (37-47) % MCV (80-100) fL MCH (25-34) pg MCHC (32-36) g/dL RDW Std Deviation (36.4-46.3) fL RDW Coeff of Aureliano (11.5-14.5) % Plt Count (130-400) K/uL MPV (7.4-10.4) fL Immature Gran % (Auto) % Neut % (Auto) % Lymph % (Auto) % Terrell % (Auto) % Eos % (Auto) % Baso % (Auto) % Immature Gran # (Auto) (0.00-0.02) K/uL Neut # (Auto) (1.4-6.5) K/uL Lymph # (Auto) (1.2-3.4) K/uL Terrell # (Auto) (0.11-0.59) K/uL Eos # (Auto) (0-0.5) K/uL Baso # (Auto) (0-0.2) K/uL Sodium (136-145) mmol/L Potassium (3.5-5.1) mmol/L Chloride (98-107) mmol/L Carbon Dioxide (21-32) mmol/L Anion Gap (3-11) BUN (7-18) mg/dl Creatinine (0.6-1.2) mg/dl Est Cr Clr Drug Dosing ml/min Est GFR ( Amer) Est GFR (Non-Af Amer) BUN/Creatinine Ratio (10-20) Glucose (70-99) mg/dl Calcium (8.5-10.1) mg/dl Hepatitis C Ab Screen Neg (Neg)
--- NOTE | 2019-06-25 12:38 | Discharge Summary ---
Date of Service June 25, 2019 Admission HPI Per Admitting Provider History of Present Illness: [74-year-old female presents to the clinic today for preoperative history and physical patient complains of a 3 to 4-year history of persistent right hip pain that is steadily increased. Pain prevents her from walking long distances, makes ascending or descending stairs difficult, and has made it difficult for her to care for her grandchildren. Patient is failed conservative treatment with physical therapy the use of nonsteroidal agents and with steroid injections into the hip.] Past History: [Past medical history: sleep apnea, heart palpitations, migraine headache, gastroesophageal reflux, hiatal hernia, obesity Past surgical history: Stage III chronic kidney disease, cervical laminectomy, D&C] Family History: [Noncontributory] Review of Systems: [Unremarkable except for those things previously stated in the HPI] Known Allergies to Medications: [IVP dye] Medication List Active Medications No Active Medications Found Medications Inactivated in the Last 72 Hours No medications found. Social History: [Completely unremarkable] Vital signs: Height 168 cm Weight 82.2 kg Blood pressure 128/76 Pulse 103 Temperature 36.8 Oxygen saturation 90% Physical Examination: [Skin: Patient skin along peers without skin lesions or discharge. Eyes: pupils are equal reactive light accommodation extraocular motor intact. Throat:Posterior pharynx clear without edema erythema or exudate Cardiovascular exam: Patient has a regular rate and rhythm no murmurs gallops initiated Lungs: Auscultation of lung sounds reveals clear breath sounds throughout no wheezing rales or rhonchi. Abdomen: Obese nondistended nontender with normoactive bowel sounds Extremities: Right hip; walks with limp Positive Trendelenberg's test Tenderness along GT and anterior joint line Tight IT band Positive Xiomara's test ROM - Flexion 120; ER 50; IR 0: Abd 20 (other side 120/50/30/50) Pain on end range [facility] resisted hip flexion test - positive ] Diagnosis: [Right hip osteoarthritis] Procedure: [Right total hip arthroplasty] Plan: [Patient is scheduled to undergo this procedure with Dr. Cain Rg at the [facility] as an inpatient on June 24, 2019 risks and complications of the procedure such as infection bleeding pain scarring nerve blood vessel damage with wound problems stiffness incomplete relief of symptoms hardware failure hardware loosening wear fracture tendon or ligament injury dislocation leg length inequality blood clots embolism heart attack stroke and were explained to the patient during her visit today by Dr. Rg informed consent to perform the procedure was obtained. Patient had her preanesthesia clearance test at the hospital earlier today and at that time obtains a preoperative EKG CBC with differential complete metabolic panel PT/INR blood type and screen urinalysis urine culture hemoglobin A1c and a nasal culture for MRSA. Patient is scheduled appointment with her primary care provider Dr. Mc next Friday for her preoperative clearance examination. Her two-week postoperative follow-up with myself is on July 07 at 1045. During today's visit I educated patient about total hip precautions, use of antibiotics after total joint replacement, discharge planning, purchase of a hip care, lectures offered by the [facility] in regards to joint replacement surgery. I also advised her about purchasing a hip kit, bringing a walker with her on the day of surgery, and provided her with paperwork to obtain a handicap placard for her vehicle. Advised the patient that I will discharge her with prescriptions for pain relieving agents and that she will be taking enteric- coated aspirin twice daily for 30 days postoperatively for prevention of blood clots. Patient verbalizes understanding of all information during today's visit thanks for the care she is received and states that she has questions or concerns prior to her surgery date she will contact the clinic.] Admission Exam Per Admitting Provider Physical Examination: [Skin: Patient skin along peers without skin lesions or discharge. Eyes: pupils are equal reactive light accommodation extraocular motor intact. Throat:Posterior pharynx clear without edema erythema or exudate Cardiovascular exam: Patient has a regular rate and rhythm no murmurs gallops initiated Lungs: Auscultation of lung sounds reveals clear breath sounds throughout no wheezing rales or rhonchi. Abdomen: Obese nondistended nontender with normoactive bowel sounds Extremities: Right hip; walks with limp Positive Trendelenberg's test Tenderness along GT and anterior joint line Tight IT band Positive Xiomara's test ROM - Flexion 120; ER 50; IR 0: Abd 20 (other side 120/50/30/50) [facility] - positive Principal Diagnosis Right hip osteoarthritis Discharge Exam Right Hip: Dressing clean, dry and intact. Knee ROM 0-90. Calf soft and supple. NV intact in Rt LE. Periph pulses easily palpable. Cap refill < 2 seconds. No pain with light passive internal / external hip rotation. Neg SLRT. Neg log roll. Neg stinchfield. Quad strength 4/5. Able to easily actively dorsi/plantarflex foot. Discharge Data Allergies Allergy/AdvReac Type Severity Reaction Status Date / Time Iodinated Contrast Media Allergy Unknown Hives Verified 06/24/19 09:14 Consultations 06/25/19 08:00 Consult Case Management - Discharge Planning Routine Procedures Performed Operation Date: 06/24/19 11:15 Actual Procedures p Right Total Hip Arthroplasty--Uncemented(Right) - Cain Rg MD Hospital Course (1) S/P total hip arthroplasty: Patient did very overnight and with PT/OT this AM. She wanted to be discharged to [facility] for rehab, but was advised that she most likely would not qualify based on her current condition, therefore she is opting for in home PT and discharge home this evening. WBAT with walker assistance Ice with EZ wrap Total Hip precautions Abduction pillow use x 6 wks PT/OT this AM Discharge to home this evening with in home therapy services DVT prophylaxis with TEDs and Aspirin Pain control with PO meds F/u at [facility] as previously scheduled With questions call Total Time Total Time Spent Total Time Spent (In Minutes): 20 mins Total Time Includes: Examination of the Patient, Discharge Planning, Medication Reconciliation and Communication With Other Providers Discharge Plan Discharge Items Patient Disposition: Home - Home Health Services Reason For Visit: Right Hip Osteoarthritis Discharge Diagnosis: Right Hip Osteoarthritis Activity: As commented below Lifting: None Bathing: Keep incision dry Bathing Comment: May shower tomorrow Sexual Activity: Wait until after follow-up appointment Exercise/Sports: Wait until after follow-up appointment Driving/Machine Use: No driving until cleared by route sales specialist Weightbearing: Right weightbearing Weightbearing Comment: as tolerated with walker assistance Non-emergency contact: Primary Care Provider Call non-emergency contact if: you have any medication questions, your pain is not controlled, your temperature is above 101.5, your wound has increased drainage and your wound pain has increased Follow-up/Referrals: Castro Mc MD [Primary Care Provider] - Diet: Regular Addtl Attending Provider Instructions: Post-operative Instructions Dear Patient and Family/Friends, Before you are discharged from the hospital, it is important to know what to expect when you get home after surgery. To that end, we have created this sheet of discharge instructions which covers many commonly asked questions. Make sure you go through this sheet in its entirety with your nurse before you are discharged. Please note that we will go over the specifics of your surgery and recovery when you return for your first post-operative visit. Sincerely, Dr. Rg Medications 1. Oxycodone 5 mg: take 1-2 tabs by mouth every 4-6 hours for pain control. A prescription for 30 tabs will be sent to your pharmacy. 2. Diclofenac Sodium 75 mg: Take 1 tab by mouth twice daily for 30 days post operatively. A prescription will be sent to your pharmacy with 1 refill. 3. Aspirin 81 mg: take one tablet twice daily for 30 days post operatively to prevent blood clots. Please purchase this medication. 4. Extra Strength Tylenol 500 mg: take 2 tabs by mouth every 6-8 hour post operatively for 30 days for pain control. Please purchase. Pain Expect to be in a fair amount of pain after surgery. Remember, our goal is not to eliminate your pain, but to make it tolerable. It is a good idea to stay ahead of your pain by taking the medications you were prescribed once you get home. Typically, the pain starts improving 3-7 days after surgery. You should start weaning off the narcotic pain medication (oxycodone, hydrocodone, hydromorphone, morphine) as soon as your pain improves. Please call our office if your pain is not adequately controlled. Ice Ice your operative site at least 5 times a day for 15-30 minutes at a time. Make sure you have a thin cloth between the ice or cooling unit and your skin to prevent sanchez bite. This is especially important if you received a nerve block. Continue icing your operative site for the first 5-7 days after surgery, then as needed. Diet/Nausea/Vomiting Start by drinking clear liquids and eating crackers. If you can tolerate this, then you may resume your normal diet. If you feel nauseated or vomit, take Zofran/ondansetron (if prescribed). Please call our office if you have intractable nausea or vomiting, or, if after hours, you may go to the Emergency Room for help. Constipation Constipation is a common side effect of narcotic pain medication. If you have not had a bowel movement within 2 days after surgery, we recommend purchasing an over the counter laxative such as Milk of Magnesia, Dulcolax, or Miralax from a local pharmacy, and taking it as instructed. Call our clinic if any questions. Nerve block The anesthesia team sometimes places a nerve block to help with post-operative pain control. This results in significant numbness and inability to move the extremity. The nerve block usually wears off in 8-12 hours, but sometimes can last up to 24 hours. Please call our office if you are still unable to move your extremity after 24 hours, unless you received a pain pump to take home. Nerve blocks typically wear off quickly, so start taking pain medication as soon as you start feeling soreness near your surgical site. Weight bearing and Range of Motion. Do not bear any weight through your operative extremity immediately after surgery. If you had upper extremity surgery, do not lift anything with that arm. If you are in a knee brace, keep it locked in place until your follow-up. We will discuss your weight bearing, range of motion, and lifting restrictions in detail at your first post-operative appointment. Continuous Passive Motion (CPM) Machine If you were prescribed a CPM machine, it will start after your first post- operative appointment, at which time we will give you instructions on the range of motion settings and duration of treatment Physical therapy You will be given a prescription for physical therapy or occupational therapy at your first post-operative appointment. Typically, patients start therapy within 1 week of surgery Wound care and showering We will inspect your wound at your first post-operative visit, and may do a dressing change at that time. Most patients will be in a water-proof dressing that is removed 14 days after surgery. It is normal to see some dried blood on the dressing. Do not remove your dressing, paper strips or sutures yourself unless you are given permission. Showering is allowed the day after surgery. Do not scrub or remove any dressings. The wound should not be submerged underwater (i.e. in a bathtub or pool) until 4 weeks after surgery SONIYA stockings If you were given white stockings, these are to be worn at all times except to shower (on both legs) for the first 2 weeks after surgery. Driving You may not drive while taking narcotic pain medication or while in a cast, splint, sling or brace. You, the patient, need to make the final determination about when you are safe to drive, however, the earliest you may consider driving after surgery is below: Hand/Wrist/Elbow Surgery: 3 days Shoulder Surgery: 2 weeks Hip,/Knee/Ankle Surgery: 4 weeks Fracture repair: 6 weeks Return to Work Your return to work depends on what surgery was done and what type of work you do. Please bring any paperwork your employer needs completed to your first post-operative visit. Also, bring a description of your job duties, as this helps us to understand what risks you may face at work. Travel Avoid long distance travel (greater than 1 hour) in airplanes and cars for the first 6 weeks after surgery. If you must travel, you need to have a Doppler ultrasound done before you travel to rule out a blood clot in your legs. Follow-up You should have a follow-up appointment already scheduled 1-2 days after surgery. If not, please contact our office to make this appointment before you leave the hospital. When to call the office It is normal to have swelling and bruising in the limb that was operated on. This will improve with time. It is also normal to have fevers for the first 2 days after surgery. Reasons you should call your doctor include: Uncontrolled pain; Nausea, vomiting, or constipation that does not improve with medication; Fevers over 101.5, chills, sweats; Drainage or bleeding from the wound; Foul odor; Spreading areas of redness; Any other concerns Pending Studies at Discharge: No Stand-Alone Forms: My [facility] Medications and DC Order Prescriptions: New oxycodone 5 mg tablet See Rx Instructions .ROUTE .COMPLEX Qty: 30 RF: 0 diclofenac sodium 75 mg tablet,delayed release (DR/EC) 75 mg PO BID 30 Days Qty: 60 RF: 0 No Action No Known Home Medications RF: 0 Discharge Orders: Discharge Order (Routine); Ordered 06/25/19 Ordered By: Jose Alcantara/Other Patient Handouts: A1C Admission Data Admit Date/Time: 06/24/19 13:06 Attending Provider: Cain Rg Admit Provider: Cain Rg Primary Care Provider: Castro Mc Other Providers: [facility] ; [facility]
[2019-06-25] MEDS ORDERED: CeleBREX 200 MG CAP PO SCH (21:00)
== END 2019-06-25 18:00 | disposition home health service (06) | DRG 470 ==
LOC: ASU 08:38 → 3E 13:06